=== PATIENT | female | born 1970 | race Caucasian/White ===

== ENCOUNTER 2020-02-11 14:38 | Outpatient (REF) | payer OTHER, SELFPAY | END 2020-02-11 14:39 | disposition home or self-care (01) | LOC: HO.LAB 14:38 | PROVIDERS: PCP Internal Medicine; Visit Provider Internal Medicine | DX: Z20.828 Contact with and (suspected) exposure to other viral communicable diseases (principal) | CPT/HCPCS: C9803; U0003 ==

== ENCOUNTER 2020-03-24 14:39 | Outpatient (REF) | payer OTHER, SELFPAY | END 2020-03-24 14:40 | disposition home or self-care (01) | LOC: HO.LAB 14:39 | PROVIDERS: PCP Internal Medicine; Visit Provider Internal Medicine | DX: Z20.828 Contact with and (suspected) exposure to other viral communicable diseases (principal) | CPT/HCPCS: C9803; U0003 ==

== ENCOUNTER 2021-06-18 11:02 | Inpatient (IN) | payer OTHER, SELFPAY ==
--- NOTE | ~2021-06-18 | MR_ITS ---
EXAMINATION: MRI BRAIN WITHOUT CONTRAST CLINICAL INFORMATION: Evaluate for cerebrovascular accident. COMPARISON: CT angiogram of the head and neck 06/18/2021. TECHNIQUE: Multiplanar MR imaging the brain was performed without contrast. FINDINGS: There is no acute territorial infarct. No pathological magnetic susceptibility artifact. Intracranial vascular flow voids are maintained. There is no intracranial mass effect or midline shift. No abnormal extra-axial collection. Lateral and third ventricles are normal. No hydrocephalus. Midline structures including the cervicomedullary junction are normal. No acute bone marrow signal changes. There is no mastoid or middle ear effusion. Mild paranasal sinus disease primarily affecting the ethmoid air cells. Globes and orbits are symmetric. MR/MR head/brain wo con IMPRESSION: Normal brain MRI.
--- NOTE | ~2021-06-18 | XR_ITS ---
EXAMINATION: XR CHEST CLINICAL INFORMATION: Right-sided weakness COMPARISON: Previous chest x-ray April 2017 TECHNIQUE: Frontal view of the chest was obtained. FINDINGS: No significant abnormality is noted involving the heart, lungs, mediastinum, bony thorax or soft tissues. XR/XR chest 1V IMPRESSION: Unremarkable examination.
--- NOTE | ~2021-06-18 | CT_ITS ---
EXAMINATION: CT HEAD WITHOUT CONTRAST (STROKE PROTOCOL) CLINICAL INFORMATION: Stroke protocol. Right-sided weakness. COMPARISON: None. TECHNIQUE: Contiguous axial imaging was performed from the skull base to vertex without intravenous administration of contrast. This CT examination was performed using dose optimization techniques as appropriate, variously including the following: *Automated exposure control *Adjustment of mA and/or kV according to patient size (this includes techniques or standardized protocols for targeted exams where dose is matched to indication/reason for exam; i.e. extremities or head) *Use of iterative reconstruction technique DLP: 588 mGy-cm FINDINGS: There is no intracranial hemorrhage, hematoma, or extra-axial fluid collection. The ventricles are normal in size. There is no hydrocephalus, edema, or mass effect. The sorto-white matter differentiation appears symmetric. There is no acute infarct or mass lesion. The calvarium appears intact. There is no pneumocephalus or orbital emphysema. The visualized sinuses and middle ears and mastoid air cells show no significant mucosal thickening. There are no air-fluid levels. CT/CT head for stroke IMPRESSION: No acute intracranial pathology. This critical result was discussed with Dr. Matthew at 1135 hours on 06/18/2021. It was ascertained that the content and urgency of the report was understood at the time of direct communication.
--- NOTE | ~2021-06-18 | CT_ITS ---
EXAMINATION: CT ANGIOGRAM NECK WITH CONTRAST CT ANGIOGRAM BRAIN WITH CONTRAST CLINICAL INFORMATION: Right-sided weakness. COMPARISON: Noncontrast head CT performed just prior. TECHNIQUE: Test bolus sequences followed by intravenous administration 100 mL of Omnipaque 350. Helical imaging was performed in the axial plane from the thoracic inlet to the skull vertex. Delayed postcontrast imaging of the head was also performed. The data was processed at the anesthesiology technologist workstation for generation of MIP sequences. Angled MIPs and volume rendered reformatted images were also generated at an offline 3D workstation. Stenoses are assessed in accordance with NASCET criteria unless otherwise indicated. This CT examination was performed using dose optimization techniques as appropriate, variously including the following: *Automated exposure control *Adjustment of mA and/or kV according to patient size (this includes techniques or standardized protocols for targeted exams where dose is matched to indication/reason for exam; i.e. extremities or head) *Use of iterative reconstruction technique DLP: 1388 mGy-cm FINDINGS: Head CT: There is no intracranial hemorrhage, large acute infarction, or mass lesion. The ventricles are normal in size and configuration without evidence of hydrocephalus. No abnormal enhancement is seen. The visualized paranasal sinuses and mastoid air cells are clear. Neck CTA: The aortic arch and great vessel origins are patent. The common and internal carotid arteries are patent. Mild atheromatous changes are seen at the left carotid bifurcation without associated stenosis. The bilateral vertebral arteries are patent throughout the neck with the right side being dominant. Head CTA: No proximal vessel occlusion is seen. The intradural right vertebral artery supplies the basilar artery. Left vertebral artery terminates as a PICA. Both datawarehouse developer are patent. Mild atheromatous changes are seen at the bilateral carotid siphons without associated stenosis. The ACAs and MCAs are patent. No aneurysm is seen. The dural venous sinuses are normally opacified. Non-vascular findings: The cervical soft tissues are within normal limits. Emphysema is noted within the visualized lungs. The cervical spine is intact without significant degenerative change. CT/CT angio head neck stroke IMPRESSION: No acute abnormality identified. Major head or neck arteries are patent without significant stenosis or occlusion. Incidentally noted emphysema. This critical result was discussed with Dr. Matthew on 06/18/2021 11:37 AM, and it was ascertained that the content and urgency of the report was understood at the time of direct communication.
--- NOTE | ~2021-06-18 | XR_ITS ---
EXAMINATION: XR SHOULDER, RIGHT CLINICAL INFORMATION: Pain COMPARISON: None TECHNIQUE: Three views of the right shoulder. FINDINGS: Bone alignment is normal. No acute fracture or dislocation is seen. There are old right anterior first through third rib fractures. The joint spaces are normal. Soft tissues are normal. XR/XR shoulder RT min 2V IMPRESSION: Normal right shoulder.
--- NOTE | 2021-06-18 11:10 | ECG_ITS ---
Test Reason : ?STROKE Blood Pressure : / mmHG Vent. Rate : 076 BPM Atrial Rate : 076 BPM P-R Int : 158 ms QRS Dur : 080 ms QT Int : 414 ms P-R-T Axes : 084 089 068 degrees QTc Int : 465 ms Normal sinus rhythm Normal ECG When compared with ECG of 04-JUN-2011 02:35, Vent. rate has increased BY 25 BPM Referred By: Kendrick Matthew Electronically Signed By:GUI CALDWELL
[2021-06-18] MEDS: LORazepam 2 MG/ML VIAL 1 MG IVPUSH ×2 (11:12→19:13)
--- NOTE | 2021-06-18 11:14 | ED.GENADULT ---
HPI - General Adult General Chief complaint: Stroke Stated complaint: STROKE ALERT,ACR WEAKNESS,LKWT 9AM Time Seen by Provider: 06/18/21 11:10 Source: patient Limitations: no limitations History of Present Illness HPI narrative: THIS IS A 51-YEAR-OLD FEMALE WHO WAS AT WORK THIS MORNING WHEN SHE DEVELOPED A FEELING OF NUMBNESS AND WEAKNESS ON HER RIGHT SIDE AND THE ARM AND LEG, NOT INVOLVING HER FACE. THE PATIENT DENIES ANY HEADache. She denies any visual changes or trouble speaking. she 1st describes a sense of numbness on her right side but then later said she has weakness, not numbness. She denies any chest pain or shortness of breath. She denies any prior stroke or history of hypertension or diabetes. Patient did have nausea prior to arrival and was given ondansetron in the ambulance. Related Data Home Medications Medication Instructions Recorded Confirmed No Known Home Meds 06/18/21 06/18/21 Allergies Allergy/AdvReac Type Severity Reaction Status Date / Time codeine [CODEINE] Allergy Unknown HIVES Verified 06/18/21 11:42 doxycycline [DOXYCYCLINE] Allergy Unknown HIVES Verified 06/18/21 11:42 Codeine Sulfate Allergy Unknown Hives Uncoded 06/18/21 11:42 Doxycycline Hyclate Allergy Unknown Hives Uncoded 06/18/21 11:42 Review of Systems Review of Systems: Yes all other systems are reviewed and are negative Constitutional: Constitutional: Reports as per HPI Eyes: Eyes: Reports as per HPI and Reports no additional eye complaints ENT: Reports system reviewed and no additional complaints, except as documented and Reports Normal hearing present Cardiovascular: Cardiovascular: Reports as per HPI, Denies chest pain and Denies dyspnea Respiratory: Respiratory: Reports as per HPI, Denies cough and Denies dyspnea Gastrointestinal: Gastrointestinal: Reports as per HPI, Denies abdominal pain, Denies diarrhea and Denies vomiting Genitourinary: Genitourinary: Reports as per HPI, Denies hematuria, Denies urinary frequency and Denies dysuria Musculoskeletal: Musculoskeletal: Reports no additional musculoskeletal complaints and Reports numbness Integumentary/Breasts: Skin/Breast: Reports as per HPI and Denies rash Neurologic: Reports as per HPI, Reports Normal hearing present, Denies Abnormal speech present, Denies confusion, Reports focal weakness and Reports numbness Psychiatric: Psychiatric: Reports no additional psychiatric complaints, Reports as per HPI and Denies confusion Endocrine: Endocrine: Reports no additional endocrine complaints and Reports as per HPI Hematologic/Lymphatic: Hematologic/Lymphatic: Reports no additional hematologic/lymphatic complaints, Reports as per HPI and Reports other (No peripheral edema) [facility] Social History Social History Alcohol intake: current Alcohol intake frequency: a few times a month Patient Tobacco Use Status: Current everyday Tobacco user Use of substances other than those prescribed or required for medical reasons: No Advance Directives: No Advance Directives Information Provided: No Physical Exam ED Vital Signs: Vital Signs - 24 hr 06/18/21 11:33 06/18/21 12:41 06/18/21 14:11 Pulse Rate 80 90 75 Respiratory Rate 17 13 13 Blood Pressure 139/82 143/88 H 135/88 Pulse Oximetry 100 100 98 BMI result Body Mass Index 24.7 Const Other: Patient was goes am and on the EMS gurney initially. 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 Patient was unable to lift her right leg off the gurney but had normal power of plantar flexion and dorsiflexion. No gross deficits to light touch. Cranial nerves normal with normal extraocular motions. No visual field deficit, though the patient had to be assessed a few times and some of the littlejohn to get a reliable answer. Normal [id number] on left. General: No confusion Orientation/consciousness: patient oriented x3 and No confusion [facility] Head: Yes normal to inspection General nose exam: Normal external nose present Mouth: moist mucous membranes Throat: Yes posterior oropharynx normal, Yes tonsils normal and Yes uvula midline Eyes Eyelids: Yes eyelids normal Conjunctivae: conjunctivae normal Pupils: Equal, round and reactive pupils present Neck Neck: Yes supple Resp Effort & Inspection: normal respiratory effort Auscultation: clear to auscultation bilaterally Cardio Rate: regular rate Rhythm: regular rhythm Heart sounds: S1 normal heart sound present, S2 normal heart sound present, no gallops, no murmurs and no rubs GI Inspection: No distended Palpation (GI): Soft to palpation and nontender Auscultation: normal bowel sounds Skin General skin exam: other (Warm and dry) Neuro General: patient oriented x3 and No confusion Cranial nerves: Yes Equal, round and reactive pupils present and Yes Normal hearing present Speech: No Abnormal speech present Extrem General: Yes no pedal edema Psych Affect: normal affect Attitude: cooperative Medical Decision Making MDM Narrative Medical decision making narrative: Patient was re-evaluated after CT scan and she complained of a throbbing pain in her right arm was able to raise both of her arms, had no pronator drift, was able to raise the right leg off of the gurney, had no sensory deficit to light touch in her arms or legs, cranial nerves remain normal. Patient was very anxious going into CT scan was given Ativan 1 mg IV. Patient reports that she is a smoker, does have a family history of stroke. CT of brain and CTA of the head and neck were negative for any concerning pathology. Given the patient's overall clinical picture with somewhat meandering complaints and no objective neurologic deficit, complaint of pain in her right arm, do not suspect CVA, certainly tPA is not indicated. Discussed with Dr. Waldrop of Neurology, WHO AGREES NOT LIKELY TO BE A CVA, tPA not indicated. Patient had right arm weakness and numbness, later more like a right arm pain. Initially there was concern for acute CVA. Patient's EKG is normal but her troponin is mildly elevated. patient denies any chest pain, has symptoms limited to her right arm with some associated nausea. Patient is being given aspirin 324 mg p.o.. Will obtain a repeat troponin. repeat EKG done at 1329 showed normal sinus rhythm with a rate of 73, sinus rhythm me a. Compared to the initial EKG there was more profound inversion of the T-wave in lead V1 however this may be due to lead placement. Otherwise normal EKG. case discussed with Dr. Stephenson of Cardiology who felt the patient should be admitted for further cardiac workup. Patient has a peculiar presentation of right arm weakness and numbness and then pain, no chest pain but troponin Critical care time for this life-threatening illness exclusive of all other billable procedures was approximately 55 minutes including initial evaluation of the patient, ordering tests, x-ray interpretation, EKG interpretation, medical consultation, documentation, reevaluation. Lab Data Lab results reviewed: Yes I reviewed the patient's lab results. Result diagrams: 06/18/21 11:54 06/18/21 11:54 Labs: Lab Results 06/18/21 06/18/21 06/18/21 Range/Units 11:19 11:34 11:54 WBC 7.0 (4.8-10.8) X10*3/uL RBC 4.43 (4.20-5.50) X10*6/uL Hgb 15.0 (12.0-16.0) g/dl Hct 45.4 (37.0-47.0) % MCV 102.5 H (80.0-98.0) fL MCH 33.9 H (27.0-33.0) pg MCHC 33.0 (31.0-35.0) g/dl RDW 13.1 (11.0-16.0) % Plt Count 193 (160-400) X10*3/uL MPV 10.3 (9.4-12.3) fL Immature Gran % (Auto) 0.4 (0.0-0.4) % Neut % (Auto) 75.1 H (45-73) % Lymph % (Auto) 16.2 L (20-40) % [place] % (Auto) 6.3 (2-11) % Eos % (Auto) 1.3 (0-4) % Baso % (Auto) 0.7 (0-2) % Lymph # (Auto) 1.1 L (1.2-4.9) X10*3/uL [place] # (Auto) 0.4 (0.1-1.2) X10*3/uL Eos # (Auto) 0.1 (0.0-0.4) X10*3/uL Baso # (Auto) 0.1 (0.0-0.2) X10*3/uL Abs Immat Gran (auto) 0.03 (0.00-0.03) X10*3/uL Absolute Neuts (auto) 5.2 (2.0-8.3) x10*3/uL Absolute Nucleated RBC 0.000 (0.0-0.012) X10*3/uL Nucleated RBC % (auto) 0.0 (0.0-0.2) /100WBC PT (9.9-13.0) SEC Whole Blood PT 12.8 (11.1-13.5) sec INR (0.9-1.1) Whole Blood INR 1.1 (0.9-1.1) APTT (24.1-38.0) SEC Sodium (135-145) mmol/L Potassium (3.3-5.1) mmol/L Chloride (96-108) mmol/L Carbon Dioxide (22-29) mmol/L Anion Gap (12-20) BUN (9-16) mg/dL Creatinine (0.5-1.4) mg/dL Estim Creat Clear Calc Estimated GFR POC Glucose 92 (60-115) mg/dL Random Glucose (60-115) mg/dL Calcium (8.4-10.2) mg/dL Magnesium (1.6-2.6) mg/dL Total Creatine Kinase (26-140) U/L Troponin I High Sens (<3.5-17.0) ng/L 06/18/21 06/18/21 06/18/21 Range/Units 11:54 11:54 11:54 WBC (4.8-10.8) X10*3/uL RBC (4.20-5.50) X10*6/uL Hgb (12.0-16.0) g/dl Hct (37.0-47.0) % MCV (80.0-98.0) fL MCH (27.0-33.0) pg MCHC (31.0-35.0) g/dl RDW (11.0-16.0) % Plt Count (160-400) X10*3/uL MPV (9.4-12.3) fL Immature Gran % (Auto) (0.0-0.4) % Neut % (Auto) (45-73) % Lymph % (Auto) (20-40) % [place] % (Auto) (2-11) % Eos % (Auto) (0-4) % Baso % (Auto) (0-2) % Lymph # (Auto) (1.2-4.9) X10*3/uL [place] # (Auto) (0.1-1.2) X10*3/uL Eos # (Auto) (0.0-0.4) X10*3/uL Baso # (Auto) (0.0-0.2) X10*3/uL Abs Immat Gran (auto) (0.00-0.03) X10*3/uL Absolute Neuts (auto) (2.0-8.3) x10*3/uL Absolute Nucleated RBC (0.0-0.012) X10*3/uL Nucleated RBC % (auto) (0.0-0.2) /100WBC PT 10.7 (9.9-13.0) SEC Whole Blood PT (11.1-13.5) sec INR 0.9 (0.9-1.1) Whole Blood INR (0.9-1.1) APTT 39.3 H (24.1-38.0) SEC Sodium 138 (135-145) mmol/L Potassium 4.6 (3.3-5.1) mmol/L Chloride 104 (96-108) mmol/L Carbon Dioxide 26 (22-29) mmol/L Anion Gap 13 (12-20) BUN 10 (9-16) mg/dL Creatinine 0.70 (0.5-1.4) mg/dL Estim Creat Clear Calc 80.4 Estimated GFR > 60 POC Glucose (60-115) mg/dL Random Glucose 94 (60-115) mg/dL Calcium 9.4 (8.4-10.2) mg/dL Magnesium 2.1 (1.6-2.6) mg/dL Total Creatine Kinase 72 (26-140) U/L Troponin I High Sens 73.0 H* (<3.5-17.0) ng/L 06/18/21 Range/Units 14:16 WBC (4.8-10.8) X10*3/uL RBC (4.20-5.50) X10*6/uL Hgb (12.0-16.0) g/dl Hct (37.0-47.0) % MCV (80.0-98.0) fL MCH (27.0-33.0) pg MCHC (31.0-35.0) g/dl RDW (11.0-16.0) % Plt Count (160-400) X10*3/uL MPV (9.4-12.3) fL Immature Gran % (Auto) (0.0-0.4) % Neut % (Auto) (45-73) % Lymph % (Auto) (20-40) % [place] % (Auto) (2-11) % Eos % (Auto) (0-4) % Baso % (Auto) (0-2) % Lymph # (Auto) (1.2-4.9) X10*3/uL [place] # (Auto) (0.1-1.2) X10*3/uL Eos # (Auto) (0.0-0.4) X10*3/uL Baso # (Auto) (0.0-0.2) X10*3/uL Abs Immat Gran (auto) (0.00-0.03) X10*3/uL Absolute Neuts (auto) (2.0-8.3) x10*3/uL Absolute Nucleated RBC (0.0-0.012) X10*3/uL Nucleated RBC % (auto) (0.0-0.2) /100WBC PT (9.9-13.0) SEC Whole Blood PT (11.1-13.5) sec INR (0.9-1.1) Whole Blood INR (0.9-1.1) APTT (24.1-38.0) SEC Sodium (135-145) mmol/L Potassium (3.3-5.1) mmol/L Chloride (96-108) mmol/L Carbon Dioxide (22-29) mmol/L Anion Gap (12-20) BUN (9-16) mg/dL Creatinine (0.5-1.4) mg/dL Estim Creat Clear Calc Estimated GFR POC Glucose (60-115) mg/dL Random Glucose (60-115) mg/dL Calcium (8.4-10.2) mg/dL Magnesium (1.6-2.6) mg/dL Total Creatine Kinase (26-140) U/L Troponin I High Sens 63.6 H* (<3.5-17.0) ng/L Imaging Data CT scan - head: Radiologist's impression: CT of the brain without contrast, in addition to CTA of head and neck, were all negative ECG Data Attestation: I personally reviewed and interpreted this ECG as follows: Interpretation: Sinus rhythm with a rate of 76. No ST elevation or depression. No ectopy. Normal QRS axis. Discharge Plan Discharge Clinical Impression: Right arm weakness, Arm pain, right, Elevated troponin
[2021-06-18 11:21] LABS: Prothrombin Time Whole Bld POC 12.8 sec (11.1-13.5); ~PT, ~INR - Anti Coag Clinic 1.1 (0.9-1.1)
[2021-06-18] MEDS: iohexoL 350 MG/ML 75 ML INFUS..BTL 70 ML IV (11:22)
[2021-06-18 11:33] VITALS: BP 139/82; BP 181/99; PULSE 80; PULSE 84; RESP 17; O2SAT 100; BMI 24.7
[2021-06-18 11:42] LABS: Glucose, Whole Blood 92 mg/dL (60-115)
[2021-06-18 11:58] LABS: MANUAL DIFF FLAG NO
[2021-06-18 12:00] LABS: Basophils Absolute Auto 0.1 X10*3/uL (0.0-0.2); Basophils Percent Auto 0.7 % (0-2); Eosinophils Absolute Auto 0.1 X10*3/uL (0.0-0.4); Eosinophils Percent Auto 1.3 % (0-4); Hematocrit 45.4 % (37.0-47.0); Imm Gran Abs Auto 0.03 X10*3/uL (0.00-0.03); Imm Gran Pct Auto 0.4 % (0.0-0.4); Lymphocytes Absolute Auto 1.1 X10*3/uL (1.2-4.9); Lymphocytes Percent Auto 16.2 % (20-40); Mean Corpuscular Hemoglobin 33.9 pg (27.0-33.0); Mean Corpuscular Volume 102.5 fL (80.0-98.0); Mean Platelet Volume 10.3 fL (9.4-12.3); Monocytes Absolute Auto 0.4 X10*3/uL (0.1-1.2); Monocytes Percent Auto 6.3 % (2-11); Neutrophils Absolute Auto 5.2 x10*3/uL (2.0-8.3); Neutrophils Percent Auto 75.1 % (45-73); Platelet Count 193 X10*3/uL (160-400); Red Blood Count 4.43 X10*6/uL (4.20-5.50); Red Cell Distribution Width 13.1 % (11.0-16.0)
[2021-06-18 12:06] LABS: INTERNATIONAL NORM RATIO 0.9 (0.9-1.1); Prothrombin Time 10.7 SEC (9.9-13.0)
[2021-06-18 12:08] LABS: Partial Thromboplastin Time 39.3 SEC (24.1-38.0)
[2021-06-18 12:11] LABS: Stroke Lab Use COMPLETE
[2021-06-18 12:15] LABS: Anion Gap 13 (12-20); Blood Urea Nitrogen 10 mg/dL (9-16); Calcium 9.4 mg/dL (8.4-10.2); Carbon Dioxide 26 mmol/L (22-29); Chloride 104 mmol/L (96-108); Creatinine Clr Calc Pharmacy 80.4; Estimated Glomerular Filt Rate > 60; Glucose Random 94 mg/dL (60-115); Magnesium 2.1 mg/dL (1.6-2.6); Potassium 4.6 mmol/L (3.3-5.1); Sodium 138 mmol/L (135-145)
[2021-06-18 12:41] VITALS: BP 143/88; PULSE 90; RESP 13; O2SAT 100
[2021-06-18] MEDS: Aspirin 81 MG TAB.CHEW 324 MG PO (12:43)
--- NOTE | 2021-06-18 12:51 | ECG_ITS ---
Test Reason : CHEST PAIN Blood Pressure : / mmHG Vent. Rate : 073 BPM Atrial Rate : 073 BPM P-R Int : 156 ms QRS Dur : 076 ms QT Int : 406 ms P-R-T Axes : 066 085 062 degrees QTc Int : 447 ms Normal sinus rhythm with sinus arrhythmia Normal ECG When compared with ECG of 18-JUN-2021 11:34, No significant change was found Referred By: Kendrick Matthew Electronically Signed By:GUI CALDWELL
--- NOTE | 2021-06-18 14:04 | CA_ITS ---
Transthoracic Echocardiogram Patient (Last, First, Middle): Fiordaliza Ward, Gender: Female Date of : 1970 Age: 51 Procedure Date: 06/18/2021 Procedure Type: Transthoracic Echocardiogram Location: ER Height: 154.94 cm Weight: 58.97 kg BSA: 1.57 m2 Heart Rate: bpm BP: 135 / 88 mmHg Cap Machine Operator: GERHARD Referring MD: Vik Stephenson MD Symptoms: Elevated trops, ?stroke Study Quality: Fair ECG Rhythm: Sinus Conclusions: - The left ventricular systolic function is normal. The calculated ejection fraction is 65% by biplane method. - The basal inferior and basal inferolateral segments are hypokinetic. - No obvious valvular pathology seen on this study. Findings Left Ventricle Normal left ventricular cavity size. There is normal left ventricular wall thickness. The left ventricular systolic function is normal. The calculated ejection fraction is 65% by biplane method. There is evidence of regional wall motion abnormalities. Wall Motion Rest Echo Findings The basal inferior and basal inferolateral segments are hypokinetic. Atria Both atria are normal in size. Aortic Valve There is a normal trileaflet aortic valve. There is no aortic valve stenosis. There is no aortic valve regurgitation. Mitral Valve The mitral valve appears normal. There is trace mitral valve regurgitation. There is no mitral valve stenosis. Pulmonic Valve The pulmonic valve was not well visualized. Tricuspid Valve Normal tricuspid valve structure. There is trace tricuspid valve regurgitation. The pulmonary artery systolic pressure is normal. Great Vessels The aortic annulus, sinuses of valsalva, and asc aorta are normal in size. Venous The inferior vena cava is normal in size and collapses greater than 50% with inspiration. Pericardium/Pleural There is no evidence of pericardial effusion. Prior Study Comparison No prior study available for comparison. Recommendations, Care & Conclusions No obvious valvular pathology seen on this study. Measurements 2D Linear Measurements IVSd: 0.91 0.6-0.9/0.6-1.0 cm LVIDd: 4.19 3.9-5.3/4.2-5.9 cm LVIDd Index: 2.67 2.4-3.2/2.2-3.1 cm/m2 LVIDs: 2.86 2.0-3.6 cm LVPWd: 0.70 0.7-1.1 cm LA Diam: 2.70 2.7-3.8/3.0-4.0 cm LAIDs Index: 1.72 1.5-2.3 cm/m2 LV Mass: 127.04 67-162/88-224 g LV Mass Index: 80.92 43-95/49-115 g/m2 LVOT Diam: 2.10 3.0+(-)1.3 cm 2D Systolic Function EF 4C: 63.30 >55% EF 2C: 63.70 >55% EF BiP: 64.90 >55% Mitral Valve MV Pk E: 0.77 MV PK A: 0.79 MV Decel Time: 297.00 E/A: 1.00 E'Lateral: 9.57 E'Medial: 8.59 E/E' Med: 9.00 E/E' Lat: 8.10 PHT: 87.00 MVA PHT: 2.53 Decel Avery: 2.60 Aortic Valve AoV Pk Antwon: 1.75 AoV Mn Antwon: 1.10 AoV VTI: 0.30 AoV Pk Grad: 12.00 Aov Mn Grad: 6.00 ALONZO Cont.VTI: 2.48 LVOT LVOT Pk Antwon: 1.03 LVOT Mn Antwon: 0.66 LVOT VTI: 0.21 LVOT Pk Grad: 4.00 LVOT Mn Grad: 2.00 LVOT Diam: 2.10 LVOT Area: 3.46 Diastolic Function MV Pk E: 0.77 MV Pk A: 0.79 E/A: 1.00 E'Medial: 8.59 E/E' Med: 9.00 E' Laterial: 9.57 E/E' Lat: 8.10 Right Ventricle TAPSE (mm): 22.90 TVS' Antwon: 13.30 Tricuspid Valve TR Pk Antwon: 2.19 TR Pk Grad: 19.00 RA Press: 8.00 RVSP: 27.00 Great Vessels Aorta Sinus of Valsalva: 3.33 2.0-3.[address] [place]: 2.97 1.7-3.4 cm Ao Asc: 3.10 2.1-3.4 cm Ao Arch: 2.60 Updated in Other Vendor System with Status of Final Vik Stephenson MD electronically signed on 06/18/2021 4:11:46 PM with status of Final
[2021-06-18 14:11] VITALS: BP 135/88; PULSE 75; RESP 13; O2SAT 98
--- NOTE | 2021-06-18 16:06 | P.HPHOSP_ITS ---
History of Present Illness Date of Service: 06/18/21 Attending physician on admission: Lulu Smart Chief Complaint: right armpain/ numbness , elevated troponin 51-year-old female with history of hypercholesteremia,smoker, has history of CAD in the family-came to the hospital because of right arm pain numbness and also right leg numbness initially. Numbness on the right lower extremity seems to be improving but she has some pain and weakness on the right upper extremity as well as numbness. Denies any new complaint of chest pain or shortness of breath or abdominal pain or fever or chills or nausea or vomiting Denies any cough Denies any headache or blurry vision or neck stiffness. Lab imaging reviewed: EKG normal, CBC BMP normal, elevated troponin. echo shows -wall motion abnormalities (prelim) ?CT/CT angio head? neck stroke IMPRESSION: No acute abnormality identified. Major head or neck arteries are patent without significant stenosis or occlusion. Incidentally noted emphysema. Review of Systems Review of Systems: As above. [facility] Pertinent family history: mother from [place] in her early 60's ,father also because of [place]? unclear age. Social History Alcohol intake: current Alcohol intake frequency: a few times a month Patient Tobacco Use Status: Current everyday Tobacco user Use of substances other than those prescribed or required for medical reasons: No Advance Directives: No Advance Directives Information Provided: No Meds Allergies Allergy/AdvReac Type Severity Reaction Status Date / Time codeine [CODEINE] Allergy Unknown HIVES Verified 06/18/21 11:42 doxycycline [DOXYCYCLINE] Allergy Unknown HIVES Verified 06/18/21 11:42 Codeine Sulfate Allergy Unknown Hives Uncoded 06/18/21 11:42 Doxycycline Hyclate Allergy Unknown Hives Uncoded 06/18/21 11:42 Active Medications: Current Medications Aspirin (Aspirin Enteric Coated 81 Mg Tablet.Dr) 81 mg PO DAILY [facility] Enoxaparin Sodium (Enoxaparin Sodium 40 Mg/0.4 Ml Syringe) 40 mg SUBCUT DAILY [facility] Pharmacy Consult (Consult Rx Perform Med Rec) 1 each MISCELLANE ONCE PRN PRN Reason: Consult order Sodium Chloride (0.9 % Sodium Chloride Flush 3 Ml Syringe) 3 ml IVFLUSH QSHIFT [facility] Home Medications Medication Instructions Recorded Confirmed Last Taken Type No Known Home Meds 06/18/21 06/18/21 Unknown History Physical Exam Vital Signs and Narrative: Vital Signs: Last Vital Signs Pulse 75 06/18/21 14:11 Resp 13 06/18/21 14:11 BP 135/88 06/18/21 14:11 Pulse Ox 98 06/18/21 14:11 BMI result Body Mass Index 24.7 Appearance: Alert.? Oriented X3. not in distress Eyes: Pupils equal, round and reactive to light.? Sclera nonicteric.? ENT: Pharynx normal.? Moist mucous membranes. cvs: rrr, [id number] , no murmur res: clear to auscultation ,no rhonchii or wheezing abd: no rebound or guarding ,nt, bs present. ext pulses present , no cyanosis. neuro: axo3 , moves all ext, poor efforts on right upper arm area , numbness seems to be improved ,but she feels weakness in upper arm and shoulder CN:2-12 intact Results Labs CBC and Chem 7: 06/18/21 11:54 06/18/21 11:54 Labs: Laboratory Results - last 24 hr 06/18/21 06/18/21 06/18/21 11:19 11:34 11:54 MCV 102.5 H MCH 33.9 H MCHC 33.0 RDW 13.1 Plt Count 193 MPV 10.3 Immature Gran % (Auto) 0.4 Neut % (Auto) 75.1 H Lymph % (Auto) 16.2 L [place] % (Auto) 6.3 Eos % (Auto) 1.3 Baso % (Auto) 0.7 Lymph # (Auto) 1.1 L [place] # (Auto) 0.4 Eos # (Auto) 0.1 Baso # (Auto) 0.1 Abs Immat Gran (auto) 0.03 Absolute Neuts (auto) 5.2 Absolute Nucleated RBC 0.000 Nucleated RBC % (auto) 0.0 PT Whole Blood PT 12.8 INR Whole Blood INR 1.1 APTT Anion Gap Estim Creat Clear Calc Estimated GFR POC Glucose 92 Random Glucose Calcium Magnesium Total Creatine Kinase 06/18/21 06/18/21 11:54 11:54 MCV MCH MCHC RDW Plt Count MPV Immature Gran % (Auto) Neut % (Auto) Lymph % (Auto) [place] % (Auto) Eos % (Auto) Baso % (Auto) Lymph # (Auto) [place] # (Auto) Eos # (Auto) Baso # (Auto) Abs Immat Gran (auto) Absolute Neuts (auto) Absolute Nucleated RBC Nucleated RBC % (auto) PT 10.7 Whole Blood PT INR 0.9 Whole Blood INR APTT 39.3 H Anion Gap 13 Estim Creat Clear Calc 80.4 Estimated GFR > 60 POC Glucose Random Glucose 94 Calcium 9.4 Magnesium 2.1 Total Creatine Kinase 72 Imaging Radiologist's Impressions: Impressions Head CT 06/18/21 11:20 IMPRESSION: No acute intracranial pathology. This critical result was discussed with Dr. Matthew at 1135 hours on 06/18/2021. It was ascertained that the content and urgency of the report was understood at the time of direct communication. Head/Neck CTA 06/18/21 11:24 IMPRESSION: No acute abnormality identified. Major head or neck arteries are patent without significant stenosis or occlusion. Incidentally noted emphysema. This critical result was discussed with Dr. Matthew on 06/18/2021 11:37 AM, and it was ascertained that the content and urgency of the report was understood at the time of direct communication. Chest X-Ray 06/18/21 11:52 IMPRESSION: Unremarkable examination. Assessment and Plan (1) ACS (acute coronary syndrome): Status: Acute (2) Hyperlipemia: Status: Acute (3) TIA (transient ischemic attack): Status: Acute Plan 51-year-old female with history of hypercholesteremia, smoker, family history of [place]. Came to the hospital because of right arm pain numbness as well as numbness of right sided lower extremities: 1. Question of TIA: Most of the symptom neurological is seems to be resolving, but still has weakness in the right upper arm Poor historian Started on aspirin, statin, on echo found to have wall motion abnormalities: Patient may need IV heparin for ACS MRI added to rule out stroke. Neuro evaluation added 2. possible ACS: moniter on tele trops -repeat pending Started patient on aspirin, statin may need IV heparin and further management with be decided after MRI and neuro evaluation for CVA. Discussed with Neurology: Recommended to start IV heparin since CT head negative for any bleed. 3. Hlp: not on meds will check lipidpanel in am 4.smoker : added nicotein patch 5. dvt prophylax: s/c lovenox Quality Stroke Does the patient have a stroke diagnosis?: No VTE Prior VTE?: No VTE Risk Level:: Medical - moderate - high VTE Device Contraindication: N/A - Device Ordered VTE Drug Contraindication: N/A - Med Ordered
[2021-06-18 16:18] LABS: Troponin-I High Sensitivity 63.6 ng/L (<3.5-17.0)
[2021-06-18 16:49] LABS: Alanine Aminotransferase 20 U/L (0-31); Albumin Level 4.6 g/dL (3.5-5.0); Alkaline Phosphatase 92 U/L (39-117); Aspartate Amino Transferase 28 U/L (5-31); Bilirubin Direct 0.2 mg/dL (0.0-0.5); Bilirubin Total 0.2 mg/dL (0.0-1.0); Total Protein 7.4 g/dL (6.5-8.0)
[2021-06-18 16:55] VITALS: PULSE 73; RESP 13
[2021-06-18 17:15] LABS: Appearance Urine CLEAR; Color Urine YELLOW; Glucose Urine UA NEG (NEG); Leukocyte Esterase Urine NEG (NEG); Nitrite Urine NEG (NEG); PH 6.5 (5.0-8.0); Specific Gravity - Urine <= 1.005 (1.005-1.025); Urine Blood NEG (NEG); Urine Ketones 5 MG/DL (NEG); Urine Protein NEG (NEG-TRACE)
[2021-06-18 17:18] LABS: Hematocrit 41.7 % (37.0-47.0); Hemoglobin 13.8 g/dl (12.0-16.0); Mean Corpuscular HGB Conc 33.1 g/dl (31.0-35.0); Mean Corpuscular Hemoglobin 33.7 pg (27.0-33.0); Mean Platelet Volume 10.6 fL (9.4-12.3); Platelet Count 199 X10*3/uL (160-400); Red Blood Count 4.09 X10*6/uL (4.20-5.50); Red Cell Distribution Width 13.1 % (11.0-16.0); White Blood Count 7.1 X10*3/uL (4.8-10.8)
[2021-06-18 17:20] LABS: COVID-19 Test Negative (Negative); IDNOW Serial# 55D5AD1C
[2021-06-18 17:21] LABS: Troponin-I High Sensitivity 62.7 ng/L (<3.5-17.0)
[2021-06-18 17:46] LABS: Prothrombin Time 11.1 SEC (9.9-13.0)
[2021-06-18 17:49] LABS: PTT Heparin Drip 35.5 SEC (53-77.9)
--- NOTE | 2021-06-18 17:50 | PC.NURSE ---
plan for pt to be admit to the hospital. she is aware of the plan. educated pt on s/s of bleeding as she will be started on a heparin drip
--- NOTE | 2021-06-18 18:27 | PC.NURSE ---
Addendum entered by Padmini Pedersen RN 06/18/21 18:57: dr. smart oked heparin drip not being started until after MRI has been completed. floor RN aware of the plan Original Note: spoke with Dr. Smart, pt to go to MRI and then to the floow where her heprin gtt will be started given that the pump cannot go to MRI. Dr. Smart also oked pt to go to MRI off the banking services officer. pt requesting ativan prior to MRI for anxiety and dr. smart oked this, and will order
[2021-06-18] MEDS: 0.9 % Sodium Chloride Flush 3 ML SYRINGE IVFLUSH (18:31)
--- NOTE | 2021-06-18 19:13 | PC.NURSE ---
Patient was suppose have heparin drip started but patient was taken to MRI so Heparin drip was not started. Patient was given lorazepam 1 mg prior to MRI. Patient transported to MRI by digital cartographic technician and then patient will be brought upstair.
[2021-06-18 20:00] VITALS: BP 159/87; PULSE 76; RESP 17; TEMP 36.7; O2SAT 98
[2021-06-18] MEDS: Heparin Sodium,Porcine/1/2NS 25,000 UNIT/250 ML IV.SOLN 7.13 UNIT IVCONT (20:21)
[2021-06-18] MEDS: Acetaminophen 325 MG TABLET 650 MG PO (21:23)
[2021-06-18] MEDS: Metoprolol Tartrate 12.5 MG HALFTAB PO (21:23)
[2021-06-18] MEDS: Atorvastatin Calcium 40 MG TABLET PO (21:23)
[2021-06-18 21:41] VITALS: BMI 24.7
[2021-06-18 22:57] LABS: PTT Heparin Drip 55.6 SEC (53-77.9)
[2021-06-18 23:51] VITALS: BP 127/89; PULSE 75; RESP 18; TEMP 36.7; O2SAT 98
--- NOTE | 2021-06-18 23:55 | PC.NURSE ---
Patient admitted to room 474 at 2009, heparin drip has not been initiated in ed. Heparin drip started at 2014 with secondary RN per protocol, started at 12 units/kg/hr, running at 7.13 mls/hr. Next ptt due at 0215, order placed. No signs/symptoms of bleeding noted.
--- NOTE | 2021-06-19 | ECG_ITS ---
Test Reason : chest pain Blood Pressure : / mmHG Vent. Rate : 062 BPM Atrial Rate : 062 BPM P-R Int : 170 ms QRS Dur : 078 ms QT Int : 418 ms P-R-T Axes : 071 086 071 degrees QTc Int : 424 ms Normal sinus rhythm Normal ECG When compared with ECG of 18-JUN-2021 13:29, No significant change was found Referred By: [facility] Electronically Signed By:GUI CALDWELL
[2021-06-19] MEDS: 0.9 % Sodium Chloride Flush 3 ML SYRINGE IVFLUSH (00:17)
[2021-06-19 02:20] LABS: PTT Heparin Drip 73.2 SEC (53-77.9)
[2021-06-19 03:37] VITALS: BP 132/74; PULSE 72; RESP 18; TEMP 36.7; O2SAT 99
[2021-06-19 07:29] VITALS: BP 138/88; PULSE 69; RESP 18; TEMP 36.6; O2SAT 97
[2021-06-19] MEDS: Metoprolol Tartrate 12.5 MG HALFTAB PO ×2 (08:16→19:34)
[2021-06-19] MEDS: Aspirin Enteric Coated 81 MG TABLET.DR PO (08:16)
[2021-06-19 08:27] LABS: Hematocrit 42.8 % (37.0-47.0); Hemoglobin 14.1 g/dl (12.0-16.0); Mean Corpuscular HGB Conc 32.9 g/dl (31.0-35.0); Mean Corpuscular Hemoglobin 33.3 pg (27.0-33.0); Mean Corpuscular Volume 101.2 fL (80.0-98.0); Mean Platelet Volume 10.8 fL (9.4-12.3); Platelet Count 183 X10*3/uL (160-400); Red Blood Count 4.23 X10*6/uL (4.20-5.50); Red Cell Distribution Width 13.1 % (11.0-16.0); White Blood Count 10.4 X10*3/uL (4.8-10.8)
[2021-06-19 08:37] LABS: PTT Heparin Drip 64.7 SEC (53-77.9)
[2021-06-19 08:40] LABS: Anion Gap 12 (12-20); Blood Urea Nitrogen 12 mg/dL (9-16); Calcium 9.4 mg/dL (8.4-10.2); Carbon Dioxide 28 mmol/L (22-29); Chloride 103 mmol/L (96-108); Cholesterol 265 mg/dL; Creatinine Clr Calc Pharmacy 80.4; Estimated Glomerular Filt Rate > 60; Glucose Random 94 mg/dL (60-115); HDL Cholesterol 83 mg/dL; LDL Cholesterol Calculated 168 mg/dl; Potassium 4.2 mmol/L (3.3-5.1); Sodium 139 mmol/L (135-145); Triglycerides 74 mg/dL
--- NOTE | 2021-06-19 08:46 | MHC.CM.PN ---
CM met with Patient at bedside. 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 Patient's goal for dc is home/no services and CM hasinitiated and will follow for dc planning. PCP is DR. Ronak Thorne and Patient has received Moderna vax X3. Patient's Daughter/Aimeelee is the HCP.
--- NOTE | 2021-06-19 10:00 | P.CONCA_ITS ---
History of Present Illness History of Present Illness Date of Service: 06/19/21 Chief complaint: Arm Pain Elevated Troponin Narrative: This is a cardiology consultation regarding elevated troponins. Patient does not have any history of coronary disease, myocardial infarction or any other cardiac issues. She has a chronic smoker. Not a known diabetic or hypertensive. She has had some symptoms discomfort in the right axilla for the last few weeks and thought that she had a pulled muscle or something like that. However as today she noticed other complaints like right arm weakness, numbness and she felt as though her arm weighed like a piece of lead. Then she came to the ER. Initially thought to be a stroke but both CT scan as well as MRI of the head are unremarkable. However troponins were abnormal. Hence we have been asked to see her. She does not really have any chest pain type presentation at all. In the past has not had any type of cardiac symptoms. Review of Systems Review of Systems: Yes all other systems are reviewed and are negative Cardiovascular: Cardiovascular: Reports as per HPI, Reports no additional cardiovascular complaints, Denies acrocyanosis, Denies cool extremities, Denies chest pain, Denies diaphoresis, Denies syncope, Denies claudication, Denies leg edema, Denies lightheadedness, Denies palpitations and Denies dyspnea Respiratory: Respiratory: Denies dyspnea Neurologic: Denies syncope Endocrine: Endocrine: Denies palpitations PMFSH Past Medical History Medical History (Updated 06/19/21 @ 10:06 by Vik Stephenson MD) Hyperlipemia Family History Family History (Updated 06/19/21 @ 10:05 by Vik Stephenson MD) Father Hx of CABG Social History Social History Household Members: Significant Other Housing: House Do you presently have visiting nurse or other home services: No Alcohol intake: current Alcohol intake frequency: a few times a month Patient Tobacco Use Status: Current everyday Tobacco user Tobacco use type: Cigarette Cigarette Packs Per Day: 0.5 Cigarettes Per Day: 10.0 Years Smoked: 30 service: No Current occupational status: employed Meds Allergies Allergy/AdvReac Type Severity Reaction Status Date / Time codeine [CODEINE] Allergy Unknown HIVES Verified 06/18/21 11:42 doxycycline [DOXYCYCLINE] Allergy Unknown HIVES Verified 06/18/21 11:42 Codeine Sulfate Allergy Unknown Hives Uncoded 06/18/21 11:42 Doxycycline Hyclate Allergy Unknown Hives Uncoded 06/18/21 11:42 Active Medications: Current Medications Aspirin (Aspirin Enteric Coated 81 Mg Tablet.) 81 mg PO DAILY [facility] Last Admin: 06/19/21 08:16 Dose: 81 mg Documented by: Atorvastatin Calcium (Atorvastatin Calcium 40 Mg Tablet) 40 mg PO BEDTIME [facility] Last Admin: 06/18/21 21:23 Dose: 40 mg Documented by: Heparin Sodium (Porcine) (Heparin Sodium,Porcine 5,000 Unit/Ml Vial) 2,400 unit 40 unit/kg (2400 unit) IVPUSH PROTOCOL BOLUS PRN; Protocol PRN Reason: 40 unit/kg - Heparin Protocol Heparin Sodium (Porcine) (Heparin Sodium,Porcine 5,000 Unit/Ml Vial) 4,800 unit 80 unit/kg (4800 unit) IVPUSH PROTOCOL BOLUS PRN; Protocol PRN Reason: 80 unit/kg - Heparin Protocol Heparin Sodium/Sodium Chloride () 25,000 unit in 250 mls @ 0 mls/hr IVCONT .Q0M [facility]; Protocol Last Titration: 06/19/21 02:05 Dose: 12 units/kg/hr, 7.13 mls/hr Documented by: Metoprolol Tartrate (Metoprolol Tartrate 12.5 Mg Halftab) 12.5 mg PO BID [facility]; Protocol Last Admin: 06/19/21 08:16 Dose: 12.5 mg Documented by: Nicotine (Nicotine 21 Mg Patch.Td24) 21 mg TRANSDERMA DAILY [facility] Last Admin: 06/19/21 08:47 Dose: Not Given Documented by: Pharmacy Consult (Consult Rx Perform Med Rec) 1 each MISCELLANE ONCE PRN PRN Reason: Consult order Sodium Chloride (0.9 % Sodium Chloride Flush 3 Ml Syringe) 3 ml IVFLUSH QSHIFT [facility] Last Admin: 06/19/21 08:20 Dose: Not Given Documented by: Home Medications Medication Instructions Recorded Confirmed Last Taken Type No Known Home Meds 06/18/21 06/18/21 Unknown History Physical Exam Vital Signs: Vital Signs: Last Vital Signs Temp 97.8 F 06/19/21 07:29 Pulse 69 06/19/21 07:29 Resp 18 06/19/21 07:29 BP 138/88 06/19/21 07:29 Pulse Ox 97 06/19/21 07:29 BMI result Body Mass Index 24.7 Const: General: comfortable HENMT: Other: Unremarkable Neck: Neck: Yes normal visual inspection Chest: Chest palpation & inspection: normal inspection of the chest Resp: Auscultation: clear to auscultation bilaterally Cardio: Palpation: normal PMI Heart sounds: S1 normal heart sound present, S2 normal heart sound present, no gallops, no murmurs and no rubs GI: Palpation (GI): Soft to palpation Back/Spine/Pelvis: Other: unremarkable Skin: Lesions: other Neuro: General: other Extrem: General: Yes other Psych: Mental Status: other Objective Labs and Meds Result diagrams: 06/19/21 08:11 06/19/21 08:11 Lab results: Laboratory Results - last 24 hr 06/18/21 06/18/21 06/18/21 11:19 11:34 11:54 WBC 7.0 RBC 4.43 Hgb 15.0 Hct 45.4 MCV 102.5 H MCH 33.9 H MCHC 33.0 RDW 13.1 Plt Count 193 MPV 10.3 Immature Gran % (Auto) 0.4 Neut % (Auto) 75.1 H Lymph % (Auto) 16.2 L [place] % (Auto) 6.3 Eos % (Auto) 1.3 Baso % (Auto) 0.7 Lymph # (Auto) 1.1 L [place] # (Auto) 0.4 Eos # (Auto) 0.1 Baso # (Auto) 0.1 Abs Immat Gran (auto) 0.03 Absolute Neuts (auto) 5.2 Absolute Nucleated RBC 0.000 Nucleated RBC % (auto) 0.0 PT Whole Blood PT 12.8 INR Whole Blood INR 1.1 APTT aPTT Heparin Protocol Sodium Potassium Chloride Carbon Dioxide Anion Gap BUN Creatinine Estim Creat Clear Calc Estimated GFR POC Glucose 92 Random Glucose Calcium Magnesium Total Bilirubin Direct Bilirubin AST ALT Alkaline Phosphatase Total Creatine Kinase Troponin I High Sens Total Protein Albumin Triglycerides Cholesterol LDL Cholesterol, Calc HDL Cholesterol Urine Color Urine Appearance Urine pH Ur Specific [place] Urine Protein Urine Glucose (UA) Urine Ketones Urine Blood Urine Nitrite Ur Leukocyte Esterase COVID-19 ([facility]) COVID-19 Clin Com 06/18/21 06/18/21 06/18/21 11:54 11:54 11:54 WBC RBC Hgb Hct MCV MCH MCHC RDW Plt Count MPV Immature Gran % (Auto) Neut % (Auto) Lymph % (Auto) [place] % (Auto) Eos % (Auto) Baso % (Auto) Lymph # (Auto) [place] # (Auto) Eos # (Auto) Baso # (Auto) Abs Immat Gran (auto) Absolute Neuts (auto) Absolute Nucleated RBC Nucleated RBC % (auto) PT 10.7 Whole Blood PT INR 0.9 Whole Blood INR APTT 39.3 H aPTT Heparin Protocol Sodium 138 Potassium 4.6 Chloride 104 Carbon Dioxide 26 Anion Gap 13 BUN 10 Creatinine 0.70 Estim Creat Clear Calc 80.4 Estimated GFR > 60 POC Glucose Random Glucose 94 Calcium 9.4 Magnesium 2.1 Total Bilirubin 0.2 Direct Bilirubin 0.2 AST 28 ALT 20 Alkaline Phosphatase 92 Total Creatine Kinase 72 Troponin I High Sens 73.0 H* Total Protein 7.4 Albumin 4.6 Triglycerides Cholesterol LDL Cholesterol, Calc HDL Cholesterol Urine Color Urine Appearance Urine pH Ur Specific [place] Urine Protein Urine Glucose (UA) Urine Ketones Urine Blood Urine Nitrite Ur Leukocyte Esterase COVID-19 ([facility]) COVID-19 Clin Com 06/18/21 06/18/21 06/18/21 14:16 16:28 17:00 WBC RBC Hgb Hct MCV MCH MCHC RDW Plt Count MPV Immature Gran % (Auto) Neut % (Auto) Lymph % (Auto) [place] % (Auto) Eos % (Auto) Baso % (Auto) Lymph # (Auto) [place] # (Auto) Eos # (Auto) Baso # (Auto) Abs Immat Gran (auto) Absolute Neuts (auto) Absolute Nucleated RBC Nucleated RBC % (auto) PT Whole Blood PT INR Whole Blood INR APTT aPTT Heparin Protocol Sodium Potassium Chloride Carbon Dioxide Anion Gap BUN Creatinine Estim Creat Clear Calc Estimated GFR POC Glucose Random Glucose Calcium Magnesium Total Bilirubin Direct Bilirubin AST ALT Alkaline Phosphatase Total Creatine Kinase Troponin I High Sens 63.6 H* 62.7 H* Total Protein Albumin Triglycerides Cholesterol LDL Cholesterol, Calc HDL Cholesterol Urine Color Urine Appearance Urine pH Ur Specific [place] Urine Protein Urine Glucose (UA) Urine Ketones Urine Blood Urine Nitrite Ur Leukocyte Esterase COVID-19 ([facility]) Negative COVID-19 Clin Com See Note 06/18/21 06/18/21 06/18/21 17:00 17:12 17:12 WBC 7.1 RBC 4.09 L Hgb 13.8 Hct 41.7 MCV 102.0 H MCH 33.7 H MCHC 33.1 RDW 13.1 Plt Count 199 MPV 10.6 Immature Gran % (Auto) Neut % (Auto) Lymph % (Auto) [place] % (Auto) Eos % (Auto) Baso % (Auto) Lymph # (Auto) [place] # (Auto) Eos # (Auto) Baso # (Auto) Abs Immat Gran (auto) Absolute Neuts (auto) Absolute Nucleated RBC 0.000 Nucleated RBC % (auto) 0.0 PT 11.1 Whole Blood PT INR 1.0 Whole Blood INR APTT aPTT Heparin Protocol 35.5 L Sodium Potassium Chloride Carbon Dioxide Anion Gap BUN Creatinine Estim Creat Clear Calc Estimated GFR POC Glucose Random Glucose Calcium Magnesium Total Bilirubin Direct Bilirubin AST ALT Alkaline Phosphatase Total Creatine Kinase Troponin I High Sens Total Protein Albumin Triglycerides Cholesterol LDL Cholesterol, Calc HDL Cholesterol Urine Color YELLOW Urine Appearance CLEAR Urine pH 6.5 Ur Specific [place] <= 1.005 Urine Protein NEG Urine Glucose (UA) NEG Urine Ketones 5 Urine Blood NEG Urine Nitrite NEG Ur Leukocyte Esterase NEG COVID-19 ([facility]) COVID-19 [facility] 06/18/21 06/19/21 06/19/21 22:44 02:05 08:10 WBC RBC Hgb Hct MCV MCH MCHC RDW Plt Count MPV Immature Gran % (Auto) Neut % (Auto) Lymph % (Auto) [place] % (Auto) Eos % (Auto) Baso % (Auto) Lymph # (Auto) [place] # (Auto) Eos # (Auto) Baso # (Auto) Abs Immat Gran (auto) Absolute Neuts (auto) Absolute Nucleated RBC Nucleated RBC % (auto) PT 11.0 Whole Blood PT INR 1.0 Whole Blood INR APTT aPTT Heparin Protocol 55.6 D 73.2 D Sodium Potassium Chloride Carbon Dioxide Anion Gap BUN Creatinine Estim Creat Clear Calc Estimated GFR POC Glucose Random Glucose Calcium Magnesium Total Bilirubin Direct Bilirubin AST ALT Alkaline Phosphatase Total Creatine Kinase Troponin I High Sens Total Protein Albumin Triglycerides Cholesterol LDL Cholesterol, Calc HDL Cholesterol Urine Color Urine Appearance Urine pH Ur Specific [place] Urine Protein Urine Glucose (UA) Urine Ketones Urine Blood Urine Nitrite Ur Leukocyte Esterase COVID-19 ([facility]) COVID-[employer] 06/19/21 06/19/21 06/19/21 08:11 08:11 08:11 WBC 10.4 RBC 4.23 Hgb 14.1 Hct 42.8 MCV 101.2 H MCH 33.3 H MCHC 32.9 RDW 13.1 Plt Count 183 MPV 10.8 Immature Gran % (Auto) Neut % (Auto) Lymph % (Auto) [place] % (Auto) Eos % (Auto) Baso % (Auto) Lymph # (Auto) [place] # (Auto) Eos # (Auto) Baso # (Auto) Abs Immat Gran (auto) Absolute Neuts (auto) Absolute Nucleated RBC 0.000 Nucleated RBC % (auto) 0.0 PT Whole Blood PT INR Whole Blood INR APTT aPTT Heparin Protocol 64.7 Sodium 139 Potassium 4.2 Chloride 103 Carbon Dioxide 28 Anion Gap 12 BUN 12 Creatinine 0.70 Estim Creat Clear Calc 80.4 Estimated GFR > 60 POC Glucose Random Glucose 94 Calcium 9.4 Magnesium Total Bilirubin Direct Bilirubin AST ALT Alkaline Phosphatase Total Creatine Kinase Troponin I High Sens Total Protein Albumin Triglycerides 74 Cholesterol 265 LDL Cholesterol, Calc 168 HDL Cholesterol 83 Urine Color Urine Appearance Urine pH Ur Specific [place] Urine Protein Urine Glucose (UA) Urine Ketones Urine Blood Urine Nitrite Ur Leukocyte Esterase COVID-19 ([facility]) COVID-19 Clin Com ECG Interpretation: EKG with sinus rhythm, 76/Min, no significant ST-T changes and otherwise unremarkable. Imaging Radiologist's impression: Impressions Head CT 06/18/21 11:20 IMPRESSION: No acute intracranial pathology. This critical result was discussed with Dr. Matthew at 1135 hours on 06/18/2021. It was ascertained that the content and urgency of the report was understood at the time of direct communication. Head/Neck CTA 06/18/21 11:24 IMPRESSION: No acute abnormality identified. Major head or neck arteries are patent without significant stenosis or occlusion. Incidentally noted emphysema. This critical result was discussed with Dr. Matthew on 06/18/2021 11:37 AM, and it was ascertained that the content and urgency of the report was understood at the time of direct communication. Chest X-Ray 06/18/21 11:52 IMPRESSION: Unremarkable examination. Shoulder X-Ray 06/18/21 16:20 IMPRESSION: Normal right shoulder. Brain MRI 06/18/21 19:44 IMPRESSION: Normal brain MRI. Assessment and Plan (1) NSTEMI (non-ST elevated myocardial infarction): Status: Acute Plan Presentation is somewhat atypical for acute coronary syndrome. However, elevated troponins still suggestive of the same. Echocardiogram with inferior/inferolateral wall motion abnormality. She has had extensive brain imaging including CT, CTA as well as MRI without any clear findings of stroke. We will proceed with a diagnostic cardiac catheterization. Will transfer to [facility] for the same. At this time, continue IV heparin drip. Also on aspirin, low-dose beta-blockers as well as statins. Procedures Date of Service Date of Service: 06/19/21
--- NOTE | 2021-06-19 10:46 | PM.DS ---
DS: Providers Provider Date of Service: 06/19/21 Date of admission: 06/18/21 15:59 Primary care physician: Ronak Thorne MD Consults: 06/18/21 15:59 Consult to Cardiology Routine Consulting Provider: [facility] [place] [facility] Reason for consultation: arm pain /elevated troponins Has provider been notified: No 06/18/21 16:05 Consult to Neurology Routine Consulting Provider: [facility] Reason for consultation: right side body numbness-improving ?TIA Has provider been notified: No DS: Diagnosis Discharge Diagnosis (1) NSTEMI (non-ST elevated myocardial infarction): Status: Acute DS: Summary Hospital Course Hospital Course: Attending physician on admission: Lulu Smart Chief Complaint: right armpain/ numbness , elevated troponin 51-year-old female with history of hypercholesteremia,smoker, has history of CAD in the family-came to the hospital because of right arm pain numbness and also right leg numbness initially. Numbness on the right lower extremity seems to be improving but she has some pain and weakness on the right upper extremity as well as numbness. Denies any new complaint of chest pain or shortness of breath or abdominal pain or fever or chills or nausea or vomiting Denies any cough Denies any headache or blurry vision or neck stiffness. Lab imaging reviewed: EKG normal, CBC BMP normal, elevated troponin. echo shows -wall motion abnormalities (prelim) ?CT/CT angio head? neck stroke IMPRESSION: No acute abnormality identified. Major head or neck arteries are patent without significant stenosis or occlusion. Incidentally noted emphysema. Hospital course; Patient presented with chest pain and right arm pain and numbness and noted to have elevated highly sensitive trop on 72 but no discrete ECG changes. There was also concern for TIA or stroke.. CT heada, CTA of headach and neck, MRI of head all unremarkable. She was seen by carediology with the following remarks Presentation is somewhat atypical for acute coronary syndrome.? However, elevated troponins still suggestive of the same.? Echocardiogram with inferior/inferolateral wall motion abnormality.? She has had extensive brain imaging including CT, CTA as well as MRI without any clear findings of stroke.? We will proceed with a diagnostic cardiac catheterization.? [facility] transfer to [facility] for the same.? At this time, continue IV heparin drip.? Also on aspirin, low-dose beta-blockers as well as statins. Time Spent with Patient Time attestation: Total time spent providing and/or coordinating discharge services: Discharge coordination time: Greater than 30 minutes Quality: Stroke Does the patient have a stroke diagnosis?: No Physical Exam Vital Signs: Vital Signs: Last Vital Signs Temp 97.8 F 06/19/21 07:29 Pulse 69 06/19/21 07:29 Resp 18 06/19/21 07:29 BP 138/88 06/19/21 07:29 Pulse Ox 97 06/19/21 07:29 BMI result Body Mass Index 24.7 DS: Data Data Completed and Pending Labs on day of discharge: Laboratory Results - last 24 hr 06/18/21 06/18/21 06/18/21 11:19 11:34 11:54 WBC 7.0 RBC 4.43 Hgb 15.0 Hct 45.4 MCV 102.5 H MCH 33.9 H MCHC 33.0 RDW 13.1 Plt Count 193 MPV 10.3 Immature Gran % (Auto) 0.4 Neut % (Auto) 75.1 H Lymph % (Auto) 16.2 L [place] % (Auto) 6.3 Eos % (Auto) 1.3 Baso % (Auto) 0.7 Lymph # (Auto) 1.1 L [place] # (Auto) 0.4 Eos # (Auto) 0.1 Baso # (Auto) 0.1 Abs Immat Gran (auto) 0.03 Absolute Neuts (auto) 5.2 Absolute Nucleated RBC 0.000 Nucleated RBC % (auto) 0.0 PT Whole Blood PT 12.8 INR Whole Blood INR 1.1 APTT aPTT Heparin Protocol Sodium Potassium Chloride Carbon Dioxide Anion Gap BUN Creatinine Estim Creat Clear Calc Estimated GFR POC Glucose 92 Random Glucose Calcium Magnesium Total Bilirubin Direct Bilirubin AST ALT Alkaline Phosphatase Total Creatine Kinase Troponin I High Sens Total Protein Albumin Triglycerides Cholesterol LDL Cholesterol, Calc HDL Cholesterol Urine Color Urine Appearance Urine pH Ur Specific [place] Urine Protein Urine Glucose (UA) Urine Ketones Urine Blood Urine Nitrite Ur Leukocyte Esterase COVID-19 ([facility]) COVID-19 Clin Com 06/18/21 06/18/21 06/18/21 11:54 11:54 11:54 WBC RBC Hgb Hct MCV MCH MCHC RDW Plt Count MPV Immature Gran % (Auto) Neut % (Auto) Lymph % (Auto) [place] % (Auto) Eos % (Auto) Baso % (Auto) Lymph # (Auto) [place] # (Auto) Eos # (Auto) Baso # (Auto) Abs Immat Gran (auto) Absolute Neuts (auto) Absolute Nucleated RBC Nucleated RBC % (auto) PT 10.7 Whole Blood PT INR 0.9 Whole Blood INR APTT 39.3 H aPTT Heparin Protocol Sodium 138 Potassium 4.6 Chloride 104 Carbon Dioxide 26 Anion Gap 13 BUN 10 Creatinine 0.70 Estim Creat Clear Calc 80.4 Estimated GFR > 60 POC Glucose Random Glucose 94 Calcium 9.4 Magnesium 2.1 Total Bilirubin 0.2 Direct Bilirubin 0.2 AST 28 ALT 20 Alkaline Phosphatase 92 Total Creatine Kinase 72 Troponin I High Sens 73.0 H* Total Protein 7.4 Albumin 4.6 Triglycerides Cholesterol LDL Cholesterol, Calc HDL Cholesterol Urine Color Urine Appearance Urine pH Ur Specific [place] Urine Protein Urine Glucose (UA) Urine Ketones Urine Blood Urine Nitrite Ur Leukocyte Esterase COVID-19 ([facility]) COVID-19 [employer] 06/18/21 06/18/21 06/18/21 14:16 16:28 17:00 WBC RBC Hgb Hct MCV MCH MCHC RDW Plt Count MPV Immature Gran % (Auto) Neut % (Auto) Lymph % (Auto) [place] % (Auto) Eos % (Auto) Baso % (Auto) Lymph # (Auto) [place] # (Auto) Eos # (Auto) Baso # (Auto) Abs Immat Gran (auto) Absolute Neuts (auto) Absolute Nucleated RBC Nucleated RBC % (auto) PT Whole Blood PT INR Whole Blood INR APTT aPTT Heparin Protocol Sodium Potassium Chloride Carbon Dioxide Anion Gap BUN Creatinine Estim Creat Clear Calc Estimated GFR POC Glucose Random Glucose Calcium Magnesium Total Bilirubin Direct Bilirubin AST ALT Alkaline Phosphatase Total Creatine Kinase Troponin I High Sens 63.6 H* 62.7 H* Total Protein Albumin Triglycerides Cholesterol LDL Cholesterol, Calc HDL Cholesterol Urine Color Urine Appearance Urine pH Ur Specific [place] Urine Protein Urine Glucose (UA) Urine Ketones Urine Blood Urine Nitrite Ur Leukocyte Esterase COVID-19 ([facility]) Negative COVID-19 [facility] Com See Note 06/18/21 06/18/21 06/18/21 17:00 17:12 17:12 WBC 7.1 RBC 4.09 L Hgb 13.8 Hct 41.7 MCV 102.0 H MCH 33.7 H MCHC 33.1 RDW 13.1 Plt Count 199 MPV 10.6 Immature Gran % (Auto) Neut % (Auto) Lymph % (Auto) [place] % (Auto) Eos % (Auto) Baso % (Auto) Lymph # (Auto) [place] # (Auto) Eos # (Auto) Baso # (Auto) Abs Immat Gran (auto) Absolute Neuts (auto) Absolute Nucleated RBC 0.000 Nucleated RBC % (auto) 0.0 PT 11.1 Whole Blood PT INR 1.0 Whole Blood INR APTT aPTT Heparin Protocol 35.5 L Sodium Potassium Chloride Carbon Dioxide Anion Gap BUN Creatinine Estim Creat Clear Calc Estimated GFR POC Glucose Random Glucose Calcium Magnesium Total Bilirubin Direct Bilirubin AST ALT Alkaline Phosphatase Total Creatine Kinase Troponin I High Sens Total Protein Albumin Triglycerides Cholesterol LDL Cholesterol, Calc HDL Cholesterol Urine Color YELLOW Urine Appearance CLEAR Urine pH 6.5 Ur Specific [place] <= 1.005 Urine Protein NEG Urine Glucose (UA) NEG Urine Ketones 5 Urine Blood NEG Urine Nitrite NEG Ur Leukocyte Esterase NEG COVID-19 ([facility]) [facility] 06/18/21 06/19/21 06/19/21 22:44 02:05 08:10 WBC RBC Hgb Hct MCV MCH MCHC RDW Plt Count MPV Immature Gran % (Auto) Neut % (Auto) Lymph % (Auto) [place] % (Auto) Eos % (Auto) Baso % (Auto) Lymph # (Auto) [place] # (Auto) Eos # (Auto) Baso # (Auto) Abs Immat Gran (auto) Absolute Neuts (auto) Absolute Nucleated RBC Nucleated RBC % (auto) PT 11.0 Whole Blood PT INR 1.0 Whole Blood INR APTT aPTT Heparin Protocol 55.6 D 73.2 D Sodium Potassium Chloride Carbon Dioxide Anion Gap BUN Creatinine Estim Creat Clear Calc Estimated GFR POC Glucose Random Glucose Calcium Magnesium Total Bilirubin Direct Bilirubin AST ALT Alkaline Phosphatase Total Creatine Kinase Troponin I High Sens Total Protein Albumin Triglycerides Cholesterol LDL Cholesterol, Calc HDL Cholesterol Urine Color Urine Appearance Urine pH Ur Specific [place] Urine Protein Urine Glucose (UA) Urine Ketones Urine Blood Urine Nitrite Ur Leukocyte Esterase COVID-19 ([facility]) [employer] 06/19/21 06/19/21 06/19/21 08:11 08:11 08:11 WBC 10.4 RBC 4.23 Hgb 14.1 Hct 42.8 MCV 101.2 H MCH 33.3 H MCHC 32.9 RDW 13.1 Plt Count 183 MPV 10.8 Immature Gran % (Auto) Neut % (Auto) Lymph % (Auto) [place] % (Auto) Eos % (Auto) Baso % (Auto) Lymph # (Auto) [place] # (Auto) Eos # (Auto) Baso # (Auto) Abs Immat Gran (auto) Absolute Neuts (auto) Absolute Nucleated RBC 0.000 Nucleated RBC % (auto) 0.0 PT Whole Blood PT INR Whole Blood INR APTT aPTT Heparin Protocol 64.7 Sodium 139 Potassium 4.2 Chloride 103 Carbon Dioxide 28 Anion Gap 12 BUN 12 Creatinine 0.70 Estim Creat Clear Calc 80.4 Estimated GFR > 60 POC Glucose Random Glucose 94 Calcium 9.4 Magnesium Total Bilirubin Direct Bilirubin AST ALT Alkaline Phosphatase Total Creatine Kinase Troponin I High Sens Total Protein Albumin Triglycerides 74 Cholesterol 265 LDL Cholesterol, Calc 168 HDL Cholesterol 83 Urine Color Urine Appearance Urine pH Ur Specific [place] Urine Protein Urine Glucose (UA) Urine Ketones Urine Blood Urine Nitrite Ur Leukocyte Esterase COVID-19 ([facility]) COVID-19 Clin Com Discharge Plan Discharge Anticipated Discharge Date/Time: 06/19/21 10:42 Patient Disposition: Xfer Acute Care Hospital Discharge Diagnosis: NSTEMI Referrals: Ronak Thorne MD [Primary Care Provider] - 1 Week Discharge Medications: No Action No Known Home Meds 0RF Discharge Orders: Discharge Order (Routine); Ordered 06/19/21 Ordered By: Xander Carranza Diet: advance to usual diet Activity on Discharge: No Running or jogging Stand Alone Forms: Patient Portal Discharge page Care Plan Goals: Full cardiac work up Health Concerns: NSTEMI Plan of Treatment: to [facility] fro cardiac cath Assessment: as above
[2021-06-19] MEDS: Acetaminophen 325 MG TABLET 650 MG PO (11:11)
[2021-06-19 11:18] VITALS: BP 115/86; PULSE 71; RESP 20; TEMP 36.8; O2SAT 97
--- NOTE | 2021-06-19 15:10 | PC.NURSE ---
Pt on Heparin gtt at 12units/kg/hr 7.13mls/hr. PTT at 0800am today was 64.7 That is the second no change. PTT scheduled for 0600 tomorrow morning.
[2021-06-19 15:23] VITALS: BP 123/66; PULSE 74; RESP 17; TEMP 36.9; O2SAT 97
[2021-06-19 19:18] VITALS: BP 123/80; PULSE 95; RESP 17; TEMP 36.8; O2SAT 92
[2021-06-19] MEDS: Atorvastatin Calcium 40 MG TABLET PO (19:34)
== END 2021-06-19 21:00 | disposition short-term general hospital (02) | DRG 190 ==
LOC: HO.ED 11:49 → HO.EDOVER 16:49 → HO.IMC 17:40
PROVIDERS: Admitting Provider Internal Medicine; Emergency Provider Emergency Medicine; PCP Internal Medicine; Visit Provider Internal Medicine
DX: I21.4 Non-ST elevation (NSTEMI) myocardial infarction (principal); E78.5 Hyperlipidemia, unspecified; G83.21 Monoplegia of upper limb affecting right dominant side; F17.210 Nicotine dependence, cigarettes, uncomplicated; Z71.6 Tobacco abuse counseling; Z20.822 Contact with and (suspected) exposure to COVID-19; Z88.5 Allergy status to narcotic agent; Z79.82 Long term (current) use of aspirin; Z79.899 Other long term (current) drug therapy
CPT/HCPCS: 36415; 70450; 70496; 70498; 70551; 71045; 73030; 80048; 80061; 80076; 81003; 82550; 82947; 83735; 84484; 85025; 85027; 85610; 85730; 87635; 93005; 93306; 96374; 99285; J2060; Q9967